=== PATIENT | female | born 1970 | race Caucasian/White ===

== ENCOUNTER → 2018-09-13 18:21 | Outpatient (CLI) | payer OTHER, SELFPAY ==
[2018-09-13 18:40] LABS: Absolute Lymphocyte Count 2.85 X10^3/ul (0.83-4.51); Absolute Neutrophil Count 7.5 X10^3/uL (2.0-7.7); Basophil# 0.03 X10^3/uL; Basophil% 0.3 % (0-1); Eosinophil# 0.32 X10^3/uL; Eosinophils% 2.8 % (0-5); Hematocrit 42.4 % (37-47); Hemoglobin 13.7 g/dl (12.0-15.0); Lymphocyte # 2.85 X10^3/ul (4.0); Lymphocyte % 25.4 % (19-41); Mean Corp Hgb Conc 32.3 g/gl (32-36); Mean Corpuscular Hgb 29.6 pg (27.0-32.0); Mean Corpuscular Volume 91.6 fL (81-99); Mean Platelet Vol. 11.5 fl (6.2-12.0); Monocyte# 0.55 X10^3/uL; Monocyte% 4.9 % (0-10); Neutrophil # 7.47 X10^3/uL (2.7-7.7); Neutrophil % 66.4 % (47-70); POSITIVE COUNT NO; POSITIVE DIFFERENTIAL NO; POSITIVE MORPHOLOGY NO; Platelet Count 222 K/mm3 (150-450); RBC Distribution Width CV 14.2 % (11.6-14.6); Red Blood Count 4.63 M/mm3 (4.2-5.4); White Blood Count 11.2 K/mm3 (4.4-11.0)
[2018-09-13 18:54] LABS: ALB/GLOB Ratio 0.9 RATIO (0.9-2.4); AST(SGOT) 13 U/L (15-37); Alanine Aminotransfer ALT/SGPT 23 U/L (13-56); Albumin, Serum 3.5 g/dL (3.2-5.0); Alkaline Phosphatase 98 U/L (45-117); Anion Gap 4 (5-15); BUN 4 mg/dL (7-18); BUN/Creat Ratio 5.2 RATIO (10-20); Calcium,Total 8.2 mg/dL (8.5-10.1); Chloride 110 mmol/L (98-107); Creatinine, Serum 0.77 mg/dL (0.55-1.02); EST Glomerular Filtration Rate 86 mL/min (>60); Est Glom Filt Rate - Afr Amer 104 mL/min (>60); Globulin 3.8 g/dL (2.2-4.2); Glucose 85 mg/dL (74-106); Potassium 4.3 mmol/L (3.5-5.1); Protein, Total 7.3 g/dL (6.4-8.2); Sodium Level 139 mmol/L (136-145); Thyroid Stim Hormone (TSH) 5.89 uIU/mL (0.358-3.74)
== END ==
PROVIDERS: Referring Provider Nurse Practitioner; Visit Provider Nurse Practitioner
DX: E78.2 Mixed hyperlipidemia (principal); E03.9 Hypothyroidism, unspecified
CPT/HCPCS: 80053; 84443; 85025

== ENCOUNTER → 2019-01-18 23:05 | Outpatient (CLI) | payer OTHER, SELFPAY ==
[2018-10-16 17:44] VITALS: BMI 32.9
== END ==
PROVIDERS: Referring Provider Nurse Practitioner; Visit Provider Nurse Practitioner
DX: E03.9 Hypothyroidism, unspecified (principal)
CPT/HCPCS: 84443

== ENCOUNTER → 2019-08-10 22:12 | Outpatient (CLI) | payer OTHER, SELFPAY ==
[2019-08-10 19:18] VITALS: BMI 36.3
[2019-08-10 22:25] LABS: Absolute Lymphocyte Count 4.01 X10^3/uL (0.83-4.51); Absolute Neutrophil Count 9.5 X10^3/uL (2.0-7.7); Basophil# 0.07 X10^3/uL; Basophil% 0.5 % (0-1); Eosinophil# 0.31 X10^3/uL; Eosinophils% 2.1 % (0-5); Hematocrit 45.2 % (37-47); Hemoglobin 14.5 g/dL (12.0-15.0); Lymphocyte # 4.01 X10^3/ul (4.0); Lymphocyte % 27.4 % (19-41); Mean Corp Hgb Conc 32.1 g/dL (32-36); Mean Corpuscular Hgb 29.7 pg (27.0-32.0); Mean Corpuscular Volume 92.4 fL (81-99); Mean Platelet Vol. 11.3 fl (6.2-12.0); Monocyte# 0.64 X10^3/uL; Monocyte% 4.4 % (0-10); NRBC Flagged by Analyzer 0 % (0-5); Neutrophil # 9.54 X10^3/uL (2.7-7.7); Neutrophil % 65.1 % (47-70); POSITIVE MORPHOLOGY YES; Platelet Count 212 K/mm3 (150-450); RBC Distribution Width CV 13.4 % (11.6-14.6); Red Blood Count 4.89 M/mm3 (4.2-5.4); White Blood Count 14.6 K/mm3 (4.4-11.0)
[2019-08-10 22:32] LABS: Differential Indicated SCAN CRITERIA MET
[2019-08-10 22:46] LABS: Differential Comment SCANNED
[2019-08-10 22:49] LABS: ALB/GLOB Ratio 0.9 RATIO (0.9-2.4); AST(SGOT) 17 U/L (15-37); Alanine Aminotransfer ALT/SGPT 37 U/L (13-56); Albumin, Serum 3.5 g/dL (3.2-5.0); Alkaline Phosphatase 97 U/L (45-117); Amylase 50 U/L (25-115); Anion Gap 3 (5-15); BUN 8 mg/dL (7-18); BUN/Creat Ratio 8.6 RATIO (10-20); Calcium,Total 9.1 mg/dL (8.5-10.1); Chloride 106 mmol/L (98-107); Creatinine, Serum 0.93 mg/dL (0.55-1.02); EST Glomerular Filtration Rate 69 mL/min (>60); Est Glom Filt Rate - Afr Amer 83 mL/min (>60); Glucose 105 mg/dL (74-106); Lipase 116 U/L (73-393); Potassium 3.8 mmol/L (3.5-5.1); Protein, Total 7.5 g/dL (6.4-8.2); Sodium Level 138 mmol/L (136-145); Thyroid Stim Hormone (TSH) 7.04 uIU/mL (0.358-3.74)
[2019-08-16 16:05] LABS: Anti-Cardiolipin Ab, IgA, Qn < 9 APL U/mL (0-11); Anti-Cardiolipin Ab, IgG, Qn < 9 GPL U/mL (0-14); Anti-Cardiolipin Ab, IgM, Qn < 9 MPL U/mL (0-12)
== END ==
PROVIDERS: Referring Provider Nurse Practitioner; Visit Provider Nurse Practitioner
DX: R10.12 Left upper quadrant pain (principal); D68.9 Coagulation defect, unspecified; E03.9 Hypothyroidism, unspecified
CPT/HCPCS: 80053; 81241; 82150; 83690; 84443; 85025; 86147

== ENCOUNTER → 2019-09-06 22:02 | Outpatient (CLI) | payer OTHER, SELFPAY ==
[2019-09-06 19:20] VITALS: BMI 38.0
== END ==
PROVIDERS: Referring Provider Nurse Practitioner; Visit Provider Nurse Practitioner
DX: E03.9 Hypothyroidism, unspecified (principal)
CPT/HCPCS: 84443

== ENCOUNTER → 2020-11-25 | Outpatient (CLI) | payer OTHER, SELFPAY ==
[2020-11-25 17:40] VITALS: BMI 39.9
[2020-11-25 23:10] LABS: ALB/GLOB Ratio 0.8 RATIO (0.9-2.4); AST(SGOT) 26 U/L (15-37); Alanine Aminotransfer ALT/SGPT 39 U/L (13-56); Albumin, Serum 3.7 g/dL (3.2-5.0); Alkaline Phosphatase 122 U/L (45-117); Anion Gap 5 (5-15); BUN 8 mg/dL (7-18); Calcium,Total 9.2 mg/dL (8.5-10.1); Chloride 103 mmol/L (98-107); EST Glomerular Filtration Rate 63 mL/min (>60); Est Glom Filt Rate - Afr Amer 76 mL/min (>60); Globulin 4.6 g/dL (2.2-4.2); Glucose 124 mg/dL (74-106); Potassium 4.3 mmol/L (3.5-5.1); Protein, Total 8.3 g/dL (6.4-8.2); Sodium Level 136 mmol/L (136-145); Thyroid Stim Hormone (TSH) 1.96 uIU/mL (0.358-3.74)
== END | disposition home or self-care (01) ==
PROVIDERS: Referring Provider Nurse Practitioner; Visit Provider Nurse Practitioner
DX: E88.81 Metabolic syndrome and other insulin resistance (principal); E03.9 Hypothyroidism, unspecified
CPT/HCPCS: 80053; 84443

== ENCOUNTER → 2021-04-22 | Outpatient (CLI) | payer OTHER, SELFPAY ==
[2021-04-14 18:10] VITALS: BMI 38.7
[2021-04-22 22:11] LABS: Absolute Lymphocyte Count 3.12 X10^3/uL (0.83-4.51); Absolute Neutrophil Count 9.5 X10^3/uL (2.0-7.7); Basophil# 0.06 X10^3/uL; Basophil% 0.4 % (0-1); Eosinophil# 0.35 X10^3/uL; Eosinophils% 2.5 % (0-5); Hematocrit 46.8 % (37-47); Hemoglobin 14.7 g/dL (12.0-15.0); Lymphocyte # 3.12 X10^3/ul (0.83-4.51); Lymphocyte % 22.7 % (19-41); Mean Corp Hgb Conc 31.4 g/dL (32-36); Mean Corpuscular Hgb 29.2 pg (27.0-32.0); Mean Corpuscular Volume 92.9 fL (81-99); Mean Platelet Vol. 11.6 fl (6.2-12.0); Monocyte# 0.65 X10^3/uL; Monocyte% 4.7 % (0-10); NRBC Flagged by Analyzer 0 % (0-5); Neutrophil % 69.3 % (47-70); Platelet Count 284 K/mm3 (150-450); RBC Distribution Width CV 15.1 % (11.6-14.6); RBC Distribution Width SD 51.3 fl (35.1-43.9); Red Blood Count 5.04 M/mm3 (4.2-5.4); White Blood Count 13.7 K/mm3 (4.4-11.0)
[2021-04-22 22:30] LABS: ALB/GLOB Ratio 0.8 RATIO (0.9-2.4); AST(SGOT) 24 U/L (15-37); Alanine Aminotransfer ALT/SGPT 40 U/L (13-56); Albumin, Serum 3.4 g/dL (3.2-5.0); Alkaline Phosphatase 104 U/L (45-117); Anion Gap 7 (5-15); BUN 6 mg/dL (7-18); Chloride 101 mmol/L (98-107); Cholesterol 240 mg/dL (200); EST Glomerular Filtration Rate 63 mL/min (>60); Est Glom Filt Rate - Afr Amer 76 mL/min (>60); Globulin 4.2 g/dL (2.2-4.2); Glucose 117 mg/dL (74-106); High Density Lipoprotein 25 mg/dL; Protein, Total 7.6 g/dL (6.4-8.2); Sodium Level 137 mmol/L (136-145); Triglycerides 407 mg/dL
[2021-04-23 12:37] LABS: Follicle Stimulating Hormone 15.3 mIU/mL; Luteinizing Hormone 14.2 mIU/mL
[2021-04-25 14:16] LABS: ANTINUCLEAR ANTIBODIES DIRECT Negative (Negative)
== END | disposition home or self-care (01) ==
PROVIDERS: Visit Provider Nurse Practitioner
DX: E88.81 Metabolic syndrome and other insulin resistance (principal); E03.9 Hypothyroidism, unspecified; R60.0 Localized edema; M15.0 Primary generalized (osteo)arthritis; R63.5 Abnormal weight gain
CPT/HCPCS: 80053; 80061; 83001; 83002; 84443; 85025; 86038; 86140; 86225; 86235

== ENCOUNTER → 2021-08-04 | Outpatient (CLI) | payer OTHER, SELFPAY ==
[2021-08-04 22:32] LABS: Free T3 2.9 pg/mL (2.18-3.98); T4 Free Direct 1.39 ng/dL (0.76-1.46); Thyroid Stim Hormone (TSH) 0.53 uIU/mL (0.358-3.74)
== END | disposition home or self-care (01) ==
PROVIDERS: Visit Provider Nurse Practitioner
DX: E03.9 Hypothyroidism, unspecified (principal)
CPT/HCPCS: 84439; 84443; 84481

== ENCOUNTER 2022-03-08 21:33 | Outpatient (CLI) | payer OTHER, SELFPAY ==
[2022-03-08 22:17] LABS: Absolute Lymphocyte Count 1.84 X10^3/uL (0.83-4.51); Absolute Neutrophil Count 5.3 X10^3/uL (2.0-7.7); Basophil# 0.04 X10^3/uL; Basophil% 0.5 % (0-1); Eosinophil# 0.18 X10^3/uL; Eosinophils% 2.3 % (0-5); Hematocrit 45.7 % (37-47); Hemoglobin 14.4 g/dL (12.0-15.0); Lymphocyte # 1.84 X10^3/ul (0.83-4.51); Lymphocyte % 23.4 % (19-41); Mean Corp Hgb Conc 31.5 g/dL (32-36); Mean Corpuscular Volume 92.1 fL (81-99); Mean Platelet Vol. 12.8 fl (6.2-12.0); Monocyte# 0.48 X10^3/uL; Monocyte% 6.1 % (0-10); NRBC Flagged by Analyzer 0 % (0-5); Neutrophil # 5.29 X10^3/uL (2.7-7.7); Neutrophil % 67.3 % (47-70); Platelet Count 164 K/mm3 (150-450); RBC Distribution Width CV 14.6 % (11.6-14.6); RBC Distribution Width SD 50.2 fl (35.1-43.9); Red Blood Count 4.96 M/mm3 (4.2-5.4); White Blood Count 7.9 K/mm3 (4.4-11.0)
[2022-03-08 22:35] LABS: ALB/GLOB Ratio 0.8 RATIO (0.9-2.4); AST(SGOT) 115 U/L (15-37); Alanine Aminotransfer ALT/SGPT 104 U/L (13-56); Albumin, Serum 3.5 g/dL (3.2-5.0); Alkaline Phosphatase 219 U/L (45-117); Amylase 74 U/L (25-115); Anion Gap 2 (5-15); BUN 9 mg/dL (7-18); Calcium,Total 9.3 mg/dL (8.5-10.1); Chloride 106 mmol/L (98-107); EST Glomerular Filtration Rate 63 mL/min (>60); Est Glom Filt Rate - Afr Amer 76 mL/min (>60); Globulin 4.4 g/dL (2.2-4.2); Glucose 138 mg/dL (74-106); Lipase 377 U/L (73-393); Magnesium 2.3 mg/dL (1.6-2.6); Potassium 4.7 mmol/L (3.5-5.1); Protein, Total 7.9 g/dL (6.4-8.2); Sodium Level 136 mmol/L (136-145); Thyroid Stim Hormone (TSH) 2.83 uIU/mL (0.358-3.74)
[2022-03-08 22:55] LABS: Hemoglobin A1c 7.3 % (3.8-5.6)
[2022-03-10 16:25] LABS: Endomysial Antibody IgA Negative (Negative); Immunoglobulin A 343 mg/dL (87-352)
[2022-03-10 21:33] LABS: Deamidated Gliadin IgA 8 units (0-19); Deamidated Gliadin IgG 1 units (0-19); Hepatitis A AB, Total Negative (Negative); t-Transglutaminase IgA <2 U/mL (0-3)
== END 2022-03-08 23:59 | disposition home or self-care (01) ==
PROVIDERS: Visit Provider Nurse Practitioner
DX: R10.10 Upper abdominal pain, unspecified (principal); E03.9 Hypothyroidism, unspecified; R25.2 Cramp and spasm; G57.93 Unspecified mononeuropathy of bilateral lower limbs; E88.81 Metabolic syndrome and other insulin resistance
CPT/HCPCS: 80053; 82150; 82784; 83036; 83516; 83690; 83735; 84443; 85025; 86255; 86708

== ENCOUNTER → 2022-03-30 | Outpatient (CLI) | payer OTHER, SELFPAY ==
[2022-03-30 22:25] LABS: International Normalized Ratio 0.9; Prothrombin Time (Protime)PT. 12.1 SECONDS (11.7-14.9)
[2022-04-02 08:32] VITALS: BP 133/95; PULSE 98; RESP 14; O2SAT 94
[2022-04-02 08:37] VITALS: BP 133/95; PULSE 98; RESP 14; TEMP 36.6; O2SAT 94; BMI 40.6
== END | disposition home or self-care (01) ==
PROVIDERS: PCP Nurse Practitioner; Referring Provider Nurse Practitioner; Visit Provider Nurse Practitioner
DX: R74.8 Abnormal levels of other serum enzymes (principal); D68.9 Coagulation defect, unspecified
CPT/HCPCS: 85610

== ENCOUNTER → 2022-04-02 | Outpatient (CLI) | payer OTHER, SELFPAY ==
[2022-04-02] VITALS (9 sets, daily range): BP systolic 113–133; BP diastolic 70–95; PULSE 89–100; RESP 14–26; TEMP 36.4; O2SAT 90–95; BMI 40.6
--- NOTE | 2022-04-02 | IMM_PTH ---
PATIENT: ERIKA DODD LOC: [place] U#:[id number] AGE/SX: 51/F ROOM: RE04/02/[address]: SIDNEY Gaytan : 1970 BED: DIS: 04/02/2022 SPEC #: [id number] RECD: 04/05/22 08:31 STATUS: LILA RONIT #: [id number] ODIN: 04/02/22 00:[address]: Lolita Boudreaux NP DEPT: IMMUNOHISTOCHEMISTRY RECD BY: Jovita Hernandez Tissues: Liver, NOS Procedures: Synapto (add) CD45 (add) CD56 (add) CHROMO (add) CK20 (add) CK7 (add) CK8 (add) KI-67 (add) TTF1 (add) Pankeratin (initial) PHYSICIAN & INSTITUTION [place] [address] SPECIMEN INFORMATION: Tissue Source: Right lobe liver Clinical Info: Liver lesions Specimen Number: [id number] CPT code: 76888, 45205 x9 METHODOLOGY: Deparaffinized sections of prefer/formalin-fixed tissue or PAP/DQ stained slides are incubated with monoclonal/polyclonal antibodies/oligonucleotide probes. Localization is made via biotin free immunoperoxidase method. Appropriate controls are performed and reacted as expected. Results on target cell population are indicated in the following table: RESULTS: ANTIBODY / CLONE RESULT AE1-3 (AE1/AE3/PCK26) positive CK7 (OV-TL12/30) positive CK8 (20houwR71) positive CK20 (KS20.8) negative CD45 (RP2/18) negative CD56 (123C3.D5) positive Chromo (LK2H10) positive Synapto (polyclonal) positive TTF-1 (8G7G3/1) positive Ki-67 (30-9) positive, high (~90%) These tests were developed and their performance characteristics determined by [facility]. They may not have been cleared or approved by the [place]. Food and Drug Administration. The FDA has determined that such clearance or approval is not necessary. The above immunohistochemical/dualISH markers are ordered and reviewed by the Pathologist. INTERPRETATION: Right lobe liver, CT-guided core biopsy: Poorly differentiated neuroendocrine carcinoma. See comment. BEE:isis 04/05/2022 Comment: The tumor may represent primary or metastatic carcinoma. TTF-1 can also be positive in nonpulmonary neuroendocrine carcinoma. Case has been reviewed in consultation with Dr. Fermin who concurs with the above diagnosis. IDC:AM
--- NOTE | 2022-04-02 08:12 | CT_ITS ---
PROCEDURE: CT DIRECTED CORE LIVER BIOPSY INDICATION: Female, 51 years old. Multiple liver lesions. PHYSICIAN: Dr. CHINTAN Heaton CONSENT: Written informed consent was obtained having explained the risks, benefits and alternatives in detail with the patient who accepted the risks and agreed to proceed. Laboratory review and clinical assessment was performed. CONSCIOUS SEDATION PROTOCOL: The Drugs used were: 2 mg Versed, IV., and 50 mcg Fentanyl, IV. The sedation time was: 27 minutes. Conscious sedation was started at 9:11 AM and terminated at 9:38 AM. The conscious sedation protocol was independently monitored. RADIATION DOSAGE (If Supplied By Facility): CTDIvol = ( 22 ) mGy, DLP = ( 1316.20 ) mGycm Individualized dose optimization techniques were used for this CT. TECHNIQUE: Using CT image guidance with image documentation, a suitable location in the right lobe of the liver was identified. Using an anterior approach, puncture of the liver was uneventful with an 18-gauge core needle system. 6, 18-gauge core samples were obtained, and submitted in formalin to the pathologist for further assessment. Followup CT scan revealed no distinct sequelae. CT/Biopsy/Inj or Needle Placement IMPRESSION: 1. CT directed core needle biopsy of the liver, using CT image guidance with image documentation as described. 2. Conscious Sedation protocol utilized with independent monitoring. Electronically Signed: Jarred Amaya MD at 10:02 EDT ,
[2022-04-02] MEDS: Midazolam 2 MG/2 ML Syringe IV (09:11)
[2022-04-02] MEDS: fentaNYL 100 MCG/2 ML Ampul IV (09:14)
[2022-04-02] MEDS: Lidocaine 2% (20 ml mdv) 20 ML Vial INFILT (09:25)
--- NOTE | 2022-04-02 09:30 | ASPIGT_PTH ---
PATIENT: ERIKA DODD LOC: CT U#:[id number] AGE/SX: 51/F ROOM: RE04/02/[address]: SIDNEY Gaytan : 1970 BED: DIS: 04/02/2022 SPEC #: [id number] RECD: 04/02/22 13:39 STATUS: LILA RONIT #: [id number] ODIN: 04/02/22 09:[address]: Lolita Boudreaux NP DEPT: SURGICAL PATHOLOGY RECD BY: Leanne Tejada Tissues: Liver, NOS Procedures: FNA Specimen Adequacy Special Stain Group II Surgery Specimen Level IV Imprint (control) HEADER OPERATION: CT-guided liver biopsy PRE-OP DIAGNOSIS: Lesions TISSUE SUBMITTED: Liver 18-gauge x6 MICROSCOPIC DIAGNOSIS Liver, CT-guided core biopsy: Poorly differentiated neuroendocrine carcinoma. See comment. BEE:isis 04/05/2022 COMMENT The specimen is evaluated at the time of biopsy by Dr. Isaacs. Immediate Evaluation = Malignant cells present, favor small cell carcinoma. Lymphoma cannot be ruled out. Immunohistochemistry ([id number]) supports the above diagnosis. Tumor may represent primary or metastatic carcinoma. TTF-1 can also be positive in non-pulmonary neuroendocrine carcinoma. Molecular studies on the tumor can be performed if clinically indicated. Please notify the laboratory if they are needed. Correlation with clinical, radiologic findings and appropriate follow up are necessary. Case has been reviewed in consultation with Dr. Fermin who concurs with the above diagnosis. IDC:AM MICROSCOPIC DESCRIPTION Slides are reviewed. GROSS DESCRIPTION Received in fixative is one container labeled with the patient's name and designated liver. The specimen consists of multiple irregular and elongated fragments of da silva tissue that in aggregate measure 1 x 0.3 x <0.1 cm. Four touch imprints are prepared at the time of core biopsy. A core is save for flow cytometry studies if needed. The specimen is totally submitted in one cassette. / AM:isis 04/02/2022 A core saved for flow cytometry studies is submitted in cassette #2. TC:0 CPT: 24615, 66895
== END | disposition home or self-care (01) ==
PROVIDERS: PCP Nurse Practitioner; Visit Provider Nurse Practitioner
DX: C7A.1 Malignant poorly differentiated neuroendocrine tumors (principal); Z68.41 Body mass index [BMI] 40.0-44.9, adult; D68.51 Activated protein C resistance; J45.909 Unspecified asthma, uncomplicated; F32.A Depression, unspecified; E03.9 Hypothyroidism, unspecified; E88.81 Metabolic syndrome and other insulin resistance; M19.90 Unspecified osteoarthritis, unspecified site; Z87.11 Personal history of peptic ulcer disease; F17.200 Nicotine dependence, unspecified, uncomplicated; E66.9 Obesity, unspecified; Z79.899 Other long term (current) drug therapy; K76.9 Liver disease, unspecified
CPT/HCPCS: 47000; 77012; 88172; 88305; 88307; 88313; 88341; 88342; 99156; J7050; A4216

== ENCOUNTER → 2022-06-21 | Outpatient (CLI) | payer OTHER, SELFPAY ==
--- NOTE | 2022-06-21 12:53 | MRI_ITS ---
EXAM: MR ABDOMEN AND PELVIS WITHOUT AND WITH INTRAVENOUS CONTRAST CLINICAL INDICATION: NEUROENDOCRINE CARCINOMA TECHNIQUE: Multiplanar and multisequence MR images of the abdomen and pelvis without and with intravenous contrast. This report was created using [employer] report generation technology. CONTRAST: IV DOTAREM 19 CC COMPARISON: MRI abdomen 03/16/2022 FINDINGS: LOWER THORAX: Unremarkable. No pleural effusion. ABDOMEN: LIVER: Numerous enhancing masses throughout the left and right hepatic lobes are redemonstrated. The masses demonstrate restricted diffusion. Mass of the left hepatic lobe abutting the falciform ligament on image 54 of series 1303 currently measures 3.3 x 3.7 cm (previously measured 2.1 x 2.3 cm on image 50 series 31 of the prior study). Enhancing nodule of the posterior left hepatic lobe on image 54 measures 1.2 cm, new since the prior study. Collection of masses in the right hepatic dome on image 9 of series 1303 also increased in size and contrast enhancement when compared side by side. There also appear to be at least 2 new lesions posterior to this collection measuring up to 2.4 cm, not visible on the prior exam. Anterior right lower lobe lesion measuring 4.1 x 4.7 cm on the current exam previously measured 4.8 x 5.2 cm on the prior exam. GALLBLADDER AND BILE DUCTS: The gallbladder appears to be surgically absent. No intra- or extrahepatic biliary ductal dilation. PANCREAS: Unremarkable. No focal cystic or solid mass. SPLEEN: Unremarkable. Normal size without focal cystic or solid mass. ADRENALS: Unremarkable. No nodules. KIDNEYS AND URETERS: Unremarkable. Normal renal size and position. No hydronephrosis. PELVIS: APPENDIX: No evidence of acute appendicitis. BLADDER: Unremarkable. REPRODUCTIVE: Unremarkable as visualized. No mass. ABDOMEN and PELVIS: INTRAPERITONEAL SPACE: Unremarkable. No ascites or other fluid collection. BONES/JOINTS: Enhancing lesion of the left femoral neck measuring 2.5 cm on image 29 of series 4. There is also an enhancing lesion of the left lesser trochanter measuring 1.7 cm on image 36 of series 4. 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 Portal vein is patent. Atherosclerosis of the abdominal aorta without demonstrated aneurysm. LYMPH NODES: No enlarged lymph nodes. MRI/MRI Abd WITH and W/O Contrast IMPRESSION: 1. Since 03/16/2022, overall unfavorable change. Several hepatic masses with increased increased size and number, although a few of the lesions have decreased in size. 2. 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 Portal vein is patent. 3. 2 enhancing masses of the proximal left femur (left femoral neck, lesser trochanter) likely representing osseous metastasis (this level was not imaged on prior MRI). Electronically Signed: Vish Denny MD ([place]) at 9:16 EDT ,
[2022-06-22 07:45] LABS: EGFR FINGERSTICK > 60 mL/min (>60)
[2022-06-24 07:33] LABS: CREATININE FINGERSTICK < 0.90 mg/dL (0.55-1.02)
== END | disposition home or self-care (01) ==
LOC: MRI 12:43
PROVIDERS: PCP Nurse Practitioner
DX: C7A.8 Other malignant neuroendocrine tumors (principal)
CPT/HCPCS: 72197; 74183; A9575; A4216